=== PATIENT | male | born 1945 | race African-American/Black ===

== ENCOUNTER 2017-02-23 22:02 | Inpatient (IN) | payer MEDICARE, MEDICAID ==
[~2017-02-23] VITALS: Ht 180.3 cm; Wt 125.2 kg
[~2017-02-23 22:02] MED LIST: AMIO100T4 PO; AMLODIPINE; APIX5TAB PO; CHLO25TA2 PO; CLON0.1T PO; LORA10TA7 PO; LOSA25TA12 PO; METF500T4 PO; OLME20TA14 PO; OMEP20CA10 PO; ROSU10TA PO; SITA100T11 PO
[2017-02-23] MEDS ORDERED: SODIUM CHLORIDE 0.9% 1,000 ML IV ONE (22:59)
[2017-02-23 23:21] LABS: BASOPHILS % 0.6 % (0.0-2.0); EOSINOPHILS % 3.9 % (0.0-5.0); HEMOGLOBIN. 10.8 g/dL (14.0-18.0); LYMPHOCYTES % 39.5 % (20.0-50.0); MEAN CORPUSCULAR HEMOGLOBIN 26.5 pg (28.0-32.0); MEAN CORPUSCULAR VOLUME 80.7 fL (80.0-94.0); MEAN PLATELET VOLUME 9.3 fl (7.4-10.4); MONOCYTES % 8.8 % (2.0-8.0); NEUTROPHILS % 47.2 % (40.0-76.0); PLATELET 133 x1000/uL (130-400); RED BLOOD CELL COUNT 4.09 mill/uL (4.7-6.1); RED CELL DISTRIBUTION WIDTH 13.5 % (11.6-14.6)
[2017-02-23 23:29] LABS: PROTHROMBIN TIME 10.9 sec (9.4-11.6)
[2017-02-23 23:41] LABS: CARBON DIOXIDE 26 mEq/L (21-32); CHLORIDE 104 mEq/L (98-107); TROPONIN I < 0.02 ng/mL (0.00-0.04)
[2017-02-24] MEDS ORDERED: DEXTROSE 50% WATER 50ML SYRINGE IV PRN (04:15)
[2017-02-24] MEDS ORDERED: MAGNESIUM/ALUMINUM HYDROXIDE/SIMETHICONE 30ML UDC PO PRN (04:15)
[2017-02-24] MEDS ORDERED: ACETAMINOPHEN 325MG TABLET PO PRN (04:15)
[2017-02-24] MEDS ORDERED: DIPHENHYDRAMINE 50MG/ML VIAL IV PRN (04:15)
[2017-02-24] MEDS ORDERED: IPRATROPIUM/ALBUTEROL 0.5-3(2.5)MG/3ML NEB INH PRN (04:15)
[2017-02-24] MEDS ORDERED: ONDANSETRON HCL 4MG/2ML VIAL IV PRN (04:15)
[2017-02-24] MEDS ORDERED: GUAIFENESIN 200MG/10ML SUGAR FREE UDC PO PRN (04:15)
[2017-02-24] MEDS: BLOOD SUGAR DIAGNOSTIC STRIP TEST SCH ×4 (06:47→21:36)
[2017-02-24] MEDS: SODIUM CHLORIDE 0.9% INJ 3ML FLUSH IVF SCH ×3 (06:52→22:00)
[2017-02-24] MEDS: OMEPRAZOLE 20MG CAPSULE EXTENDED RELEASE PO SCH ×2 (06:52→21:35)
[2017-02-24] MEDS: INSULIN LISPRO 100 UNITS/ML SUBCUT SCH ×4 (07:15→21:39)
[2017-02-24] MEDS ORDERED: LOSARTAN POTASSIUM 25 MG TABLET PO SCH (09:00)
[2017-02-24] MEDS: METFORMIN HCL 500MG TABLET PO SCH ×2 (09:10→17:40)
[2017-02-24] MEDS: APIXABAN 5 MG TABLET PO SCH ×2 (09:10→17:40)
[2017-02-24] MEDS: AMLODIPINE 10MG TABLET PO SCH (09:11)
[2017-02-24] MEDS ORDERED: LOSARTAN POTASSIUM 25 MG TABLET PO NR (14:10)
[2017-02-24] MEDS: LOSARTAN POTASSIUM 50 MG TABLET PO SCH (21:36)
[2017-02-24] MEDS ORDERED: INSULIN DETEMIR UD 100 UNITS/ML SYR SUBCUT SCH (22:00)
[2017-02-25 06:48] LABS: BASOPHILS % 0.4 % (0.0-2.0); HEMATOCRIT. 34.5 % (42.0-52.0); HEMOGLOBIN. 11.5 g/dL (14.0-18.0); MEAN CORPUSCULAR VOLUME 80.8 fL (80.0-94.0); MEAN PLATELET VOLUME 9.6 fl (7.4-10.4); MONOCYTES % 9.5 % (2.0-8.0); NEUTROPHILS % 49.1 % (40.0-76.0); PLATELET 138 x1000/uL (130-400); RED BLOOD CELL COUNT 4.27 mill/uL (4.7-6.1); RED CELL DISTRIBUTION WIDTH 13.1 % (11.6-14.6)
[2017-02-25] MEDS: OMEPRAZOLE 20MG CAPSULE EXTENDED RELEASE PO SCH (06:51)
[2017-02-25] MEDS: SODIUM CHLORIDE 0.9% INJ 3ML FLUSH IVF SCH (06:52)
[2017-02-25] MEDS: BLOOD SUGAR DIAGNOSTIC STRIP TEST SCH ×2 (06:55→11:22)
[2017-02-25] MEDS: INSULIN LISPRO 100 UNITS/ML SUBCUT SCH ×2 (06:55→11:37)
[2017-02-25 07:10] LABS: CHLORIDE 108 mEq/L (98-107)
[2017-02-25 07:26] LABS: CARBON DIOXIDE 25 mEq/L (21-32)
[2017-02-25] MEDS: LOSARTAN POTASSIUM 50 MG TABLET PO SCH (08:44)
[2017-02-25] MEDS: METFORMIN HCL 500MG TABLET PO SCH (08:45)
[2017-02-25] MEDS: APIXABAN 5 MG TABLET PO SCH (08:45)
[2017-02-25] MEDS: AMLODIPINE 10MG TABLET PO SCH (08:45)
[2017-02-25] MEDS ORDERED: LOSARTAN POTASSIUM 50 MG TABLET PO SCH (09:00)
[2017-02-25] MEDS ORDERED: MAGNESIUM HYDROXIDE 400MG/5ML 30ML UDC PO PRN (11:45)
[2017-02-25] MEDS ORDERED: MAGNESIUM 2 G PREMIX 50 ML IV NR (12:00)
[2017-02-25 14:44] VITALS: BP 121/61
== END 2017-02-25 16:00 | disposition home or self-care (01) | DRG 309 ==
LOC: ER 22:21 → 5WST 02-24 02:11 → EDBEDREQ 02-24 02:13 → ENRESERV 02-24 02:52
PROVIDERS: ADMIT Internal Medicine; ATTEND Internal Medicine
DX: I44.0 Atrioventricular block, first degree (principal); E44.0 Moderate protein-calorie malnutrition; I11.9 Hypertensive heart disease without heart failure; I48.92 Unspecified atrial flutter; E83.42 Hypomagnesemia; E11.9 Type 2 diabetes mellitus without complications; I48.0 Paroxysmal atrial fibrillation; I13.10 Hypertensive heart and chronic kidney disease without heart failure, with stage 1 through stage 4 chronic kidney disease, or unspecified chronic kidney disease; N18.3 Chronic kidney disease, stage 3 (moderate); E66.09 Other obesity due to excess calories; E78.5 Hyperlipidemia, unspecified; R00.1 Bradycardia, unspecified; I49.1 Atrial premature depolarization; Z68.38 Body mass index [BMI] 38.0-38.9, adult; Z98.49 Cataract extraction status, unspecified eye; Z79.4 Long term (current) use of insulin; Z79.899 Other long term (current) drug therapy; Z82.49 Family history of ischemic heart disease and other diseases of the circulatory system; Z83.3 Family history of diabetes mellitus
CPT/HCPCS: 36415; 70450; 71010; 80048; 80053; 82962; 83735; 84443; 84484; 85025; 85610; 85730; 93005; 93306; 96360; 99291; J1815; J3475; J7030; J7040

== ENCOUNTER 2018-06-15 17:52 | Inpatient (IN) | payer MEDICARE, MEDICAID ==
[~2018-06-15] VITALS: Ht 180.3 cm; Wt 128.4 kg
[~2018-06-15 17:52] MED LIST changes: -AMIO100T4 PO; -CLON0.1T PO; +METF-414 PO; -METF500T4 PO
[2018-06-15 20:37] LABS: CHLORIDE 109 mEq/L (98-107)
[2018-06-15 20:38] LABS: BASOPHILS % 0.7 % (0.0-2.0); EOSINOPHILS % 3.7 % (0.0-5.0); HEMATOCRIT. 35.7 % (42.0-52.0); HEMOGLOBIN. 11.7 g/dL (14.0-18.0); LYMPHOCYTES % 30.8 % (20.0-50.0); MEAN CORPUSCULAR HEMOGLOBIN 27.5 pg (28.0-32.0); MEAN CORPUSCULAR VOLUME 83.7 fL (80.0-94.0); MEAN PLATELET VOLUME 9.9 fl (7.4-10.4); MONOCYTES % 7.6 % (2.0-8.0); NEUTROPHILS % 57.2 % (40.0-76.0); PLATELET 147 x1000/uL (130-400); RED BLOOD CELL COUNT 4.27 mill/uL (4.7-6.1)
[2018-06-15 23:15] VITALS: BP 144/45
[2018-06-16] VITALS (7 sets, daily range): BP systolic 115–135; BP diastolic 44–72
[2018-06-16] MEDS ORDERED: ONDANSETRON HCL 4MG/2ML INJ IV PRN (00:45)
[2018-06-16] MEDS ORDERED: ACETAMINOPHEN 325MG TABLET PO PRN (00:45)
[2018-06-16] MEDS ORDERED: MAGNESIUM/ALUMINUM HYDROXIDE/SIMETHICONE 30ML UDC PO PRN (00:45)
[2018-06-16] MEDS ORDERED: DEXTROSE 50% WATER 50ML SYRINGE IV PRN (00:45)
[2018-06-16] MEDS ORDERED: NEBI5TAB3 PO (01:39)
[2018-06-16] MEDS ORDERED: ESCI5SOL2 PO (01:39)
[2018-06-16] MEDS ORDERED: AMIO100T4 PO (01:39)
[2018-06-16] MEDS ORDERED: DOCU100T PO (01:39)
[2018-06-16] MEDS ORDERED: MAX GT (01:39)
[2018-06-16] MEDS ORDERED: AMLO10TA80 PO (01:39)
[2018-06-16] MEDS: BLOOD SUGAR DIAGNOSTIC STRIP TEST SCH ×4 (06:10→21:00)
[2018-06-16] MEDS: INSULIN LISPRO 100 UNITS/ML SUBCUT SCH ×4 (06:17→22:22)
[2018-06-16] MEDS: SODIUM CHLORIDE 0.9% INJ 3ML FLUSH IVF SCH ×3 (06:27→22:19)
[2018-06-16] MEDS: METFORMIN HCL 500MG TABLET PO SCH ×2 (07:38→17:03)
[2018-06-16] MEDS ORDERED: ENOXAPARIN 40MG/0.4ML SYR SUBCUT SCH (09:00)
[2018-06-16] MEDS ORDERED: ENOXAPARIN 30MG/0.3ML SYR SUBCUT SCH (09:00)
[2018-06-16] MEDS ORDERED: APIXABAN 5 MG TABLET PO SCH (09:00)
[2018-06-16] MEDS: LOSARTAN POTASSIUM 25 MG TABLET PO SCH (09:25)
[2018-06-16] MEDS ORDERED: INFLUENZA VIRUS VACCINE(AFLURIA) 0.5ML SYR IM ONE (12:00)
[2018-06-16] MEDS: ASPIRIN 81MG TABLET PO SCH (13:46)
[2018-06-16] MEDS: ATORVASTATIN CALCIUM 10MG TABLET PO SCH (22:19)
[2018-06-17] VITALS: BP 116/54
[2018-06-17 04:00] VITALS: BP 142/53
[2018-06-17] MEDS: SODIUM CHLORIDE 0.9% INJ 3ML FLUSH IVF SCH ×3 (06:14→21:17)
[2018-06-17] MEDS: BLOOD SUGAR DIAGNOSTIC STRIP TEST SCH ×4 (06:16→21:22)
[2018-06-17] MEDS: INSULIN LISPRO 100 UNITS/ML SUBCUT SCH ×4 (06:16→21:00)
[2018-06-17] MEDS: METFORMIN HCL 500MG TABLET PO SCH ×2 (07:35→16:50)
[2018-06-17 08:00] VITALS: BP 124/77
[2018-06-17] MEDS: ASPIRIN 81MG TABLET PO SCH (09:00)
[2018-06-17] MEDS: LOSARTAN POTASSIUM 25 MG TABLET PO SCH (09:00)
[2018-06-17 12:00] VITALS: BP 126/44
[2018-06-17 16:00] VITALS: BP 114/61
[2018-06-17 20:00] VITALS: BP 145/53
[2018-06-17] MEDS: ATORVASTATIN CALCIUM 10MG TABLET PO SCH (21:17)
[2018-06-18] VITALS: BP 120/55
[2018-06-18 04:00] VITALS: BP 133/55
[2018-06-18] MEDS: SODIUM CHLORIDE 0.9% INJ 3ML FLUSH IVF SCH ×3 (05:54→22:00)
[2018-06-18] MEDS: BLOOD SUGAR DIAGNOSTIC STRIP TEST SCH ×4 (06:00→21:53)
[2018-06-18] MEDS: INSULIN LISPRO 100 UNITS/ML SUBCUT SCH ×4 (06:50→22:00)
[2018-06-18 08:00] VITALS: BP 122/60
[2018-06-18] MEDS: METFORMIN HCL 500MG TABLET PO SCH ×2 (08:38→17:20)
[2018-06-18] MEDS: LOSARTAN POTASSIUM 25 MG TABLET PO SCH (08:38)
[2018-06-18] MEDS: ASPIRIN 81MG TABLET PO SCH (08:38)
[2018-06-18 12:00] VITALS: BP 117/42
[2018-06-18 14:25] LABS: HEMATOCRIT 35.8 % (42.0-52.0); HEMOGLOBIN 11.6 g/dL (14.0-18.0); MEAN CORPUSCULAR HEMOGLOBIN 27.5 pg (28.0-32.0); PLATELET 147 x1000/uL (130-400); RED BLOOD CELL COUNT 4.21 mill/uL (4.7-6.1); RED CELL DISTRIBUTION WIDTH 13.9 % (11.6-14.6)
[2018-06-18 14:49] LABS: CHLORIDE 106 mEq/L (98-107)
[2018-06-18 16:00] VITALS: BP 126/64
[2018-06-18 20:00] VITALS: BP 126/56
[2018-06-18] MEDS: ATORVASTATIN CALCIUM 10MG TABLET PO SCH (21:50)
[2018-06-19] VITALS: BP 164/75
[2018-06-19 04:00] VITALS: BP 115/40
[2018-06-19] MEDS: BLOOD SUGAR DIAGNOSTIC STRIP TEST SCH ×2 (05:41→11:45)
[2018-06-19] MEDS: SODIUM CHLORIDE 0.9% INJ 3ML FLUSH IVF SCH (05:41)
[2018-06-19] MEDS: INSULIN LISPRO 100 UNITS/ML SUBCUT SCH ×2 (06:17→12:15)
[2018-06-19 08:00] VITALS: BP 137/69
[2018-06-19] MEDS: METFORMIN HCL 500MG TABLET PO SCH (08:31)
[2018-06-19] MEDS: LOSARTAN POTASSIUM 25 MG TABLET PO SCH (08:32)
[2018-06-19] MEDS: ASPIRIN 81MG TABLET PO SCH (08:32)
[2018-06-19 12:00] VITALS: BP 119/57
[2018-06-19 12:10] VITALS: BP 119/57
== END 2018-06-19 13:30 | disposition home or self-care (01) | DRG 310 ==
LOC: ER 17:52 → 5WST 21:57 → EDBEDREQ 22:04 → EDBEDREQTM 22:04 → ENRESERV 22:13 → 5WST 23:21
PROVIDERS: ADMIT Internal Medicine; ATTEND Internal Medicine
DX: I49.8 Other specified cardiac arrhythmias (principal); R55 Syncope and collapse; E11.9 Type 2 diabetes mellitus without complications; I10 Essential (primary) hypertension; E66.9 Obesity, unspecified; Z68.39 Body mass index [BMI] 39.0-39.9, adult; Z79.01 Long term (current) use of anticoagulants; Z82.49 Family history of ischemic heart disease and other diseases of the circulatory system; Z83.3 Family history of diabetes mellitus; Z79.899 Other long term (current) drug therapy
CPT/HCPCS: 36415; 71045; 80048; 82962; 83735; 83880; 84443; 84484; 85027; 90471; 90686; 93005; 93306; 99285; J1815

== ENCOUNTER 2019-11-10 07:45 | Inpatient (IN) | payer MEDICARE, MEDICAID ==
[~2019-11-10] VITALS: Ht 180.3 cm; Wt 135.8 kg
[~2019-11-10 07:45] MED LIST changes: +AMIO100T4 PO; +AMLO10TA80 PO; -AMLODIPINE; +CRES10 PO; +DOCU100T PO; +ESCI5SOL2 PO; -LORA10TA7 PO; -LOSA25TA12 PO; +LOSA25TA26 PO; +MAX GT; +OLME20TA13 PO; -OLME20TA14 PO; -OMEP20CA10 PO; +OMEP20CA14 PO; -ROSU10TA PO
[2019-11-10] MEDS ORDERED: KETOROLAC 30MG/ML VIAL IV STA (08:05)
[2019-11-10] MEDS ORDERED: MAGNESIUM/ALUMINUM HYDROXIDE/SIMETHICONE 30ML UDC PO STA (08:05)
[2019-11-10] MEDS ORDERED: SODIUM CHLORIDE 0.9% 1,000 ML IV ONE (08:05)
[2019-11-10 08:55] LABS: BASOPHILS % 1.1 % (0.0-2.0); EOSINOPHILS % 2.9 % (0.0-5.0); HEMATOCRIT. 37.3 % (42.0-52.0); HEMOGLOBIN. 12.2 g/dL (14.0-18.0); LYMPHOCYTES % 26.2 % (20.0-50.0); MEAN CORPUSCULAR HEMOGLOBIN 26.6 pg (28.0-32.0); MEAN CORPUSCULAR VOLUME 81.2 fL (80.0-94.0); MEAN PLATELET VOLUME 9.8 fl (7.4-10.4); MONOCYTES % 6.9 % (2.0-8.0); NEUTROPHILS % 62.9 % (40.0-76.0); PLATELET 143 x1000/uL (130-400); RED BLOOD CELL COUNT 4.59 mill/uL (4.7-6.1); RED CELL DISTRIBUTION WIDTH 14.4 % (11.6-14.6)
[2019-11-10 08:57] LABS: PROTHROMBIN TIME 10.4 sec (9.6-11.0)
[2019-11-10 08:58] LABS: CHLORIDE 108 mEq/L (98-107)
[2019-11-10 09:50] LABS: CLARITY URINE CLEAR (CLEAR); COLOR URINE YELLOW (YELLOW); KETONES URINE NEGATIVE (NEGATIVE); LEUKOCYTE ESTERASE URINE NEGATIVE (NEGATIVE); NITRITE URINE NEGATIVE (NEGATIVE); OCCULT BLOOD URINE NEGATIVE (NEGATIVE); PROTEIN URINE 2+ (NEGATIVE); UROBILINOGEN URINE 0.2 E.U./dL (0.2-1.0)
[2019-11-10] MEDS ORDERED: LORAZEPAM 1MG TABLET PO ONE (11:45)
[2019-11-10] MEDS ORDERED: MORPHINE SULFATE 2 MG/ML CPJ (NOT FOR IM USE) IV PRN (14:15)
[2019-11-10] MEDS ORDERED: ONDANSETRON HCL 4MG/2ML INJ IV PRN (14:15)
[2019-11-10] MEDS ORDERED: DEXTROSE 50% WATER 50ML SYRINGE IV PRN (14:15)
[2019-11-10] MEDS ORDERED: ACETAMINOPHEN 325MG TABLET PO PRN (14:15)
[2019-11-10] MEDS: SODIUM CHLORIDE 0.9% 1,000 ML IV SCH (14:21)
[2019-11-10] MEDS: BLOOD SUGAR DIAGNOSTIC STRIP TEST SCH ×2 (17:43→23:15)
[2019-11-10] MEDS: INSULIN LISPRO 100 UNITS/ML SUBCUT SCH ×2 (17:56→23:15)
[2019-11-10] MEDS: FAMOTIDINE 20MG/2ML VIAL IV SCH (22:30)
[2019-11-11] VITALS (8 sets, daily range): BP systolic 125–155; BP diastolic 44–99
[2019-11-11] MEDS: SODIUM CHLORIDE 0.9% 1,000 ML IV SCH ×4 (03:17→23:46)
[2019-11-11] MEDS: INSULIN LISPRO 100 UNITS/ML SUBCUT SCH ×4 (08:20→21:00)
[2019-11-11] MEDS ORDERED: HYDRALAZINE 20MG/ML VIAL IV PRN (09:00)
[2019-11-11 10:23] LABS: BASOPHILS % 0.4 % (0.0-2.0); EOSINOPHILS % 3.1 % (0.0-5.0); HEMATOCRIT. 37.8 % (42.0-52.0); HEMOGLOBIN. 12.4 g/dL (14.0-18.0); LYMPHOCYTES % 26.4 % (20.0-50.0); MEAN CORPUSCULAR HEMOGLOBIN 26.6 pg (28.0-32.0); MEAN CORPUSCULAR VOLUME 81.4 fL (80.0-94.0); MEAN PLATELET VOLUME 9.6 fl (7.4-10.4); NEUTROPHILS % 62.1 % (40.0-76.0); PLATELET 143 x1000/uL (130-400); RED BLOOD CELL COUNT 4.65 mill/uL (4.7-6.1); RED CELL DISTRIBUTION WIDTH 14.3 % (11.6-14.6)
[2019-11-11] MEDS: FAMOTIDINE 20MG/2ML VIAL IV SCH ×2 (10:27→21:13)
[2019-11-11 10:30] LABS: CHLORIDE 111 mEq/L (98-107)
[2019-11-11] MEDS: BLOOD SUGAR DIAGNOSTIC STRIP TEST SCH ×3 (11:09→21:09)
[2019-11-11] MEDS ORDERED: DOCUSATE SODIUM 100MG CAPSULE PO PRN (12:30)
[2019-11-11] MEDS ORDERED: BISACODYL 10MG SUPP PR PRN (12:30)
[2019-11-11] MEDS ORDERED: SENNOSIDES/DOCUSATE SOD 8.6/50MG TABLET PO PRN (12:30)
[2019-11-11] MEDS ORDERED: MAGNESIUM HYDROXIDE 400MG/5ML 30ML UDC PO PRN (12:30)
[2019-11-11] MEDS ORDERED: MAGNESIUM CITRATE 300ML SOLUTION PO NR (14:30)
[2019-11-11] MEDS ORDERED: METOCLOPRAMIDE HCL 10MG TABLET PO PRN (15:15)
[2019-11-12] VITALS (13 sets, daily range): BP systolic 123–159; BP diastolic 54–74
[2019-11-12] MEDS: BLOOD SUGAR DIAGNOSTIC STRIP TEST SCH ×2 (06:54→12:29)
[2019-11-12] MEDS: INSULIN LISPRO 100 UNITS/ML SUBCUT SCH ×2 (07:20→12:20)
[2019-11-12 08:01] LABS: BASOPHILS % 0.9 % (0.0-2.0); HEMATOCRIT. 39.3 % (42.0-52.0); HEMOGLOBIN. 12.8 g/dL (14.0-18.0); LYMPHOCYTES % 26.8 % (20.0-50.0); MEAN CORPUSCULAR HEMOGLOBIN 26.5 pg (28.0-32.0); MEAN CORPUSCULAR VOLUME 81.6 fL (80.0-94.0); MEAN PLATELET VOLUME 9.4 fl (7.4-10.4); MONOCYTES % 7.7 % (2.0-8.0); NEUTROPHILS % 60.6 % (40.0-76.0); PLATELET 141 x1000/uL (130-400); RED BLOOD CELL COUNT 4.82 mill/uL (4.7-6.1); RED CELL DISTRIBUTION WIDTH 14.3 % (11.6-14.6)
[2019-11-12] MEDS: FAMOTIDINE 20MG/2ML VIAL IV SCH (08:24)
[2019-11-12 08:36] LABS: CHLORIDE 110 mEq/L (98-107)
[2019-11-12] MEDS: SODIUM CHLORIDE 0.9% 1,000 ML IV SCH (12:40)
[2019-11-12] MEDS ORDERED: SENN-3 PO (12:45)
== END 2019-11-12 16:00 | disposition home or self-care (01) | DRG 683 ==
LOC: ER 07:45 → 3WST 11:41 → EDBEDREQ 11:46 → ENRESERV 11-11 07:41
PROVIDERS: ADMIT Internal Medicine; ATTEND Internal Medicine
DX: N17.9 Acute kidney failure, unspecified (principal); D61.818 Other pancytopenia; I12.9 Hypertensive chronic kidney disease with stage 1 through stage 4 chronic kidney disease, or unspecified chronic kidney disease; I48.91 Unspecified atrial fibrillation; R00.1 Bradycardia, unspecified; E11.22 Type 2 diabetes mellitus with diabetic chronic kidney disease; E11.65 Type 2 diabetes mellitus with hyperglycemia; R10.9 Unspecified abdominal pain; N18.9 Chronic kidney disease, unspecified; E78.5 Hyperlipidemia, unspecified; K59.09 Other constipation; I44.0 Atrioventricular block, first degree; Z82.49 Family history of ischemic heart disease and other diseases of the circulatory system; Z79.899 Other long term (current) drug therapy
CPT/HCPCS: 36415; 74176; 80053; 81003; 82962; 83036; 83735; 85025; 93005; 93306; 99285; J1815; J1885; J2270; J2405; J3490; J7030

== ENCOUNTER 2019-12-25 05:48 | Emergency (ER) | payer MEDICARE, MEDICAID ==
[~2019-12-25] VITALS: Ht 188 cm; Wt 127.0 kg
[~2019-12-25 05:48] MED LIST changes: -AMIO100T4 PO; -APIX5TAB PO; -CHLO25TA2 PO; -LOSA25TA26 PO; -OLME20TA13 PO; +SENN-3 PO
[2019-12-25 07:58] LABS: BASOPHILS % 0.3 % (0.0-2.0); EOSINOPHILS % 3.3 % (0.0-5.0); HEMATOCRIT. 36.2 % (42.0-52.0); MEAN CORPUSCULAR HEMOGLOBIN 26.9 pg (28.0-32.0); MEAN PLATELET VOLUME 9.9 fl (7.4-10.4); MONOCYTES % 8.3 % (2.0-8.0); NEUTROPHILS % 65.1 % (40.0-76.0); PLATELET 131 x1000/uL (130-400); RED BLOOD CELL COUNT 4.46 mill/uL (4.7-6.1); RED CELL DISTRIBUTION WIDTH 14.8 % (11.6-14.6)
[2019-12-25 08:24] LABS: CHLORIDE 108 mEq/L (98-107)
[2019-12-25 08:49] VITALS: BP 158/64
== END 2019-12-25 08:58 | disposition home or self-care (01) ==
LOC: ER 05:48
DX: I10 Essential (primary) hypertension (principal)
CPT/HCPCS: 36415; 71045; 80053; 84484; 85025; 93005; 99285

== ENCOUNTER 2021-03-30 14:11 | Inpatient (IN) | payer OTHER, MEDICAID ==
[~2021-03-30] VITALS: Ht 180.3 cm; Wt 133.4 kg
[2021-03-30 14:52] LABS: BASOPHILS % 0.5 % (0.0-2.0); EOSINOPHILS % 3.1 % (0.0-5.0); HEMATOCRIT. 36.8 % (42.0-52.0); HEMOGLOBIN. 11.9 g/dL (14.0-18.0); LYMPHOCYTES % 21.4 % (20.0-50.0); MEAN CORPUSCULAR HEMOGLOBIN 26.5 pg (28.0-32.0); MEAN PLATELET VOLUME 9.6 fl (7.4-10.4); MONOCYTES % 6.5 % (2.0-8.0); NEUTROPHILS % 68.5 % (40.0-76.0); PLATELET 170 x1000/uL (130-400); RED BLOOD CELL COUNT 4.49 mill/uL (4.7-6.1); RED CELL DISTRIBUTION WIDTH 15.6 % (11.6-14.6)
[2021-03-30 14:57] LABS: CHLORIDE 110 mEq/L (98-107)
[2021-03-30 15:02] LABS: PARTIAL THROMBOPLASTIN TIME 28.4 sec (23.4-31.0); PROTHROMBIN TIME 10.4 sec (9.6-11.0)
[2021-03-30] MEDS ORDERED: PANTOPRAZOLE SODIUM 40 MG/VIAL IV STA (15:37)
[2021-03-30] MEDS ORDERED: PANTOPRAZOLE 80 MG in SODIUM CHLORIDE 0.9% 100 ML IV STA (15:37)
[2021-03-30] MEDS ORDERED: CEFTRIAXONE 1 G PREMIX 50 ML IV ONE (15:45)
[2021-03-30] MEDS ORDERED: PANTOPRAZOLE SODIUM 40 MG/VIAL IV ONE (16:08)
[2021-03-30] MEDS ORDERED: DEXTROSE 50% WATER 50ML SYRINGE IV PRN (16:15)
[2021-03-30] MEDS ORDERED: ACETAMINOPHEN 650MG SUPP PR PRN (16:15)
[2021-03-30 16:16] LABS: CLARITY URINE CLEAR (CLEAR); COLOR URINE YELLOW (YELLOW); KETONES URINE NEGATIVE (NEGATIVE); LEUKOCYTE ESTERASE URINE NEGATIVE (NEGATIVE); NITRITE URINE NEGATIVE (NEGATIVE); OCCULT BLOOD URINE NEGATIVE (NEGATIVE); PROTEIN URINE 2+ (NEGATIVE); SPECIFIC GRAVITY URINE 1.014 (1.005-1.030)
[2021-03-30] MEDS: AMIODARONE HCL 200 MG TABLET PO SCH (16:51)
[2021-03-30] MEDS: BLOOD SUGAR DIAGNOSTIC STRIP TEST SCH ×2 (17:00→21:00)
[2021-03-30] MEDS: PANTOPRAZOLE SODIUM 40 MG/VIAL IV SCH (18:05)
[2021-03-30] MEDS: INSULIN LISPRO 100 UNITS/ML SUBCUT SCH ×2 (18:20→21:00)
[2021-03-30 19:51] LABS: HEMATOCRIT 36.1 % (42.0-52.0); HEMOGLOBIN 11.7 g/dL (14.0-18.0); MEAN CORPUSCULAR HEMOGLOBIN 26.5 pg (28.0-32.0); MEAN CORPUSCULAR VOLUME 82.1 fL (80.0-94.0); PLATELET 150 x1000/uL (130-400); RED CELL DISTRIBUTION WIDTH 15.4 % (11.6-14.6)
[2021-03-30] MEDS: ATORVASTATIN CALCIUM 20MG TABLET PO SCH (21:10)
[2021-03-30] MEDS: CLONIDINE 0.1MG TABLET PO PRN (21:11)
[2021-03-30 21:45] VITALS: BP 163/69
[2021-03-30 22:00] VITALS: BP 163/69
[2021-03-31] VITALS: BP 161/68
[2021-03-31 04:00] VITALS: BP 127/55
[2021-03-31 05:20] LABS: PROTHROMBIN TIME 10.9 sec (9.6-11.0)
[2021-03-31 05:35] LABS: BASOPHILS % 0.5 % (0.0-2.0); HEMATOCRIT. 36.7 % (42.0-52.0); HEMOGLOBIN. 11.8 g/dL (14.0-18.0); LYMPHOCYTES % 30.5 % (20.0-50.0); MEAN CORPUSCULAR HEMOGLOBIN 26.3 pg (28.0-32.0); MEAN CORPUSCULAR VOLUME 81.8 fL (80.0-94.0); MEAN PLATELET VOLUME 9.9 fl (7.4-10.4); MONOCYTES % 9.2 % (2.0-8.0); NEUTROPHILS % 55.8 % (40.0-76.0); PLATELET 140 x1000/uL (130-400); RED BLOOD CELL COUNT 4.48 mill/uL (4.7-6.1); RED CELL DISTRIBUTION WIDTH 15.1 % (11.6-14.6)
[2021-03-31 05:37] LABS: FOLIC ACID (FOLATE) SERUM > 20.00 ng/mL (>5.38)
[2021-03-31 05:40] LABS: FERRITIN 101 ng/mL (22-322)
[2021-03-31 05:48] LABS: VITAMIN B12 SERUM 658 pg/mL (211-911)
[2021-03-31] MEDS: BLOOD SUGAR DIAGNOSTIC STRIP TEST SCH ×4 (06:40→21:01)
[2021-03-31] MEDS: INSULIN LISPRO 100 UNITS/ML SUBCUT SCH ×4 (07:10→21:01)
[2021-03-31 08:00] VITALS: BP 149/65
[2021-03-31] MEDS: PANTOPRAZOLE SODIUM 40 MG/VIAL IV SCH ×2 (09:07→18:04)
[2021-03-31] MEDS: AMIODARONE HCL 200 MG TABLET PO SCH (09:57)
[2021-03-31] MEDS: AMLODIPINE 10MG TABLET PO SCH (11:25)
[2021-03-31 12:00] VITALS: BP 176/67
[2021-03-31] MEDS: CLONIDINE 0.1MG TABLET PO PRN (12:20)
[2021-03-31] MEDS ORDERED: HYDROCODONE/ACETAMINOPHEN 5/325MG TABLET PO PRN (15:00)
[2021-03-31] MEDS ORDERED: IPRATROPIUM/ALBUTEROL 0.5-3(2.5)MG/3ML NEB HHN PRN (15:00)
[2021-03-31] MEDS ORDERED: LACTULOSE 20G/30ML UDC PO NR (15:00)
[2021-03-31] MEDS ORDERED: HYDRALAZINE 20MG/ML VIAL IV PRN (15:00)
[2021-03-31] MEDS ORDERED: LORAZEPAM 2MG/ML CPJ IV PRN (15:00)
[2021-03-31] MEDS ORDERED: BISACODYL 10MG SUPP PR PRN (15:00)
[2021-03-31] MEDS ORDERED: NALOXONE HCL 0.4MG/ML VIAL IV PRN (15:00)
[2021-03-31 16:00] VITALS: BP 118/56
[2021-03-31 20:00] VITALS: BP 142/58
[2021-03-31] MEDS: ATORVASTATIN CALCIUM 20MG TABLET PO SCH (21:01)
[2021-04-01] VITALS (7 sets, daily range): BP systolic 110–166; BP diastolic 9–70
[2021-04-01 06:23] LABS: BASOPHILS % 0.3 % (0.0-2.0); EOSINOPHILS % 3.7 % (0.0-5.0); HEMATOCRIT. 37.7 % (42.0-52.0); HEMOGLOBIN. 12.2 g/dL (14.0-18.0); LYMPHOCYTES % 26.7 % (20.0-50.0); MEAN CORPUSCULAR HEMOGLOBIN 26.5 pg (28.0-32.0); MEAN CORPUSCULAR VOLUME 81.8 fL (80.0-94.0); MEAN PLATELET VOLUME 9.8 fl (7.4-10.4); MONOCYTES % 8.5 % (2.0-8.0); NEUTROPHILS % 60.8 % (40.0-76.0); PLATELET 133 x1000/uL (130-400); RED BLOOD CELL COUNT 4.61 mill/uL (4.7-6.1); RED CELL DISTRIBUTION WIDTH 15.2 % (11.6-14.6)
[2021-04-01 06:49] LABS: PARTIAL THROMBOPLASTIN TIME 28.8 sec (23.4-31.0)
[2021-04-01] MEDS: INSULIN LISPRO 100 UNITS/ML SUBCUT SCH ×4 (07:10→20:13)
[2021-04-01] MEDS: AMLODIPINE 10MG TABLET PO SCH (09:00)
[2021-04-01] MEDS: AMIODARONE HCL 200 MG TABLET PO SCH (09:00)
[2021-04-01] MEDS: PANTOPRAZOLE SODIUM 40 MG/VIAL IV SCH ×2 (10:01→17:57)
[2021-04-01] MEDS: BLOOD SUGAR DIAGNOSTIC STRIP TEST SCH ×3 (12:01→20:13)
[2021-04-01] MEDS ORDERED: MIDAZOLAM HCL 5 MG/5 ML VIAL ONE (12:38)
[2021-04-01] MEDS ORDERED: FENTANYL CITRATE/PF 50MCG/ML 2ML VIAL ONE (12:39)
[2021-04-01] MEDS ORDERED: FENTANYL CITRATE/PF 50MCG/ML 2ML VIAL IV PRN (12:48)
[2021-04-01] MEDS ORDERED: MIDAZOLAM HCL 5 MG/5 ML VIAL IV PRN (12:49)
[2021-04-01] MEDS ORDERED: LACTULOSE 20G/30ML UDC PO ONE (13:45)
[2021-04-01] MEDS ORDERED: SUCR1TAB30 MT (13:51)
[2021-04-01] MEDS ORDERED: APIX5TAB MT (13:51)
[2021-04-01] MEDS ORDERED: OMEP40CA20 MT (13:51)
[2021-04-01] MEDS ORDERED: APIXABAN 5 MG TABLET PO SCH (14:30)
[2021-04-01] MEDS: SUCRALFATE 1G TABLET PO SCH ×2 (17:58→20:06)
[2021-04-01] MEDS: ATORVASTATIN CALCIUM 20MG TABLET PO SCH (20:05)
[2021-04-01 21:14] LABS: BASOPHILS % 0.3 % (0.0-2.0); EOSINOPHILS % 3.3 % (0.0-5.0); HEMATOCRIT. 35.9 % (42.0-52.0); HEMOGLOBIN. 11.8 g/dL (14.0-18.0); LYMPHOCYTES % 29.5 % (20.0-50.0); MEAN CORPUSCULAR VOLUME 82.3 fL (80.0-94.0); MONOCYTES % 7.9 % (2.0-8.0); PLATELET 150 x1000/uL (130-400); RED BLOOD CELL COUNT 4.36 mill/uL (4.7-6.1); RED CELL DISTRIBUTION WIDTH 14.8 % (11.6-14.6)
[2021-04-01 21:59] LABS: CARCINO EMBRYONIC ANTIGEN 1.3 ng/ml
[2021-04-05 14:29] LABS: HEPATITIS B SURFACE ANTIGEN NEGATIVE
== END 2021-04-01 20:21 | disposition home or self-care (01) | DRG 378 ==
LOC: ER 14:28 → 7EST 17:55 → ENRESERV 20:27
PROVIDERS: ADMIT Internal Medicine; ATTEND Internal Medicine
PROC: 0DB98ZX Excision of Duodenum, Via Natural or Artificial Opening Endoscopic, Diagnostic (ICD-10-PCS; principal; 2021-04-01)
PROC: 0DB78ZX Excision of Stomach, Pylorus, Via Natural or Artificial Opening Endoscopic, Diagnostic (ICD-10-PCS; 2021-04-01)
DX: K29.71 Gastritis, unspecified, with bleeding (principal); N17.9 Acute kidney failure, unspecified; J98.11 Atelectasis; E66.2 Morbid (severe) obesity with alveolar hypoventilation; Z68.41 Body mass index [BMI] 40.0-44.9, adult; K26.4 Chronic or unspecified duodenal ulcer with hemorrhage; I12.9 Hypertensive chronic kidney disease with stage 1 through stage 4 chronic kidney disease, or unspecified chronic kidney disease; D64.9 Anemia, unspecified; E11.22 Type 2 diabetes mellitus with diabetic chronic kidney disease; E78.5 Hyperlipidemia, unspecified; K74.60 Unspecified cirrhosis of liver; R00.1 Bradycardia, unspecified; I25.10 Atherosclerotic heart disease of native coronary artery without angina pectoris; Z20.822 Contact with and (suspected) exposure to COVID-19; I48.0 Paroxysmal atrial fibrillation; N18.9 Chronic kidney disease, unspecified; Z79.01 Long term (current) use of anticoagulants; Z80.3 Family history of malignant neoplasm of breast; Z82.49 Family history of ischemic heart disease and other diseases of the circulatory system; Z86.16 Personal history of COVID-19; Z87.11 Personal history of peptic ulcer disease; Z87.01 Personal history of pneumonia (recurrent); Z79.899 Other long term (current) drug therapy; Z79.84 Long term (current) use of oral hypoglycemic drugs
CPT/HCPCS: 36415; 71045; 74176; 76700; 76770; 80048; 80053; 80061; 81003; 82105; 82270; 82378; 82607; 82728; 82746; 82962; 83036; 83540; 83550; 83735; 83880; 84484; 85025; 85027; 85044; 86803; 86850; 86900; 87340; 87426; 88305; 88312; 88313; 93005; 93306; 97162; 99285; C9113; J0696; J1815; J2250; J3010; J7050

== ENCOUNTER 2022-12-16 08:13 | Emergency (ER) | payer MEDICARE, MEDICAID ==
[~2022-12-16] VITALS: Ht 170.2 cm; Wt 130.0 kg
[~2022-12-16 08:13] MED LIST changes: +APIX5TAB MT; -OMEP20CA14 PO; +OMEP40CA20 MT; +SUCR1TAB30 MT
[2022-12-16] MEDS ORDERED: KETOROLAC 30MG/ML INJ (FOR IM ONLY) IM ONE (09:15)
[2022-12-16] MEDS ORDERED: KETOROLAC 30MG/ML VIAL IM NR (09:36)
[2022-12-16 09:54] VITALS: BP 139/60
[2022-12-16] MEDS ORDERED: CYCL10TA21 MT (10:41)
[2022-12-16] MEDS ORDERED: TOPUD MT (10:41)
== END 2022-12-16 11:31 | disposition home or self-care (01) ==
LOC: ER 08:32
DX: M54.50 Low back pain, unspecified (principal); E11.9 Type 2 diabetes mellitus without complications; I10 Essential (primary) hypertension; Z79.899 Other long term (current) drug therapy
CPT/HCPCS: 72131; 96372; 99285; J1885

== ENCOUNTER 2023-06-26 11:26 | Emergency (ER) | payer MEDICARE, MEDICAID ==
[~2023-06-26] VITALS: Ht 180.3 cm; Wt 130.0 kg
[~2023-06-26 11:26] MED LIST changes: +CYCL10TA21 MT; +TOPUD MT
[2023-06-26 11:37] VITALS: TEMP 98.6; O2SAT 97
[2023-06-26 12:20] LABS: BASOPHILS % 0.3 % (0.0-2.0); EOSINOPHILS % 2.4 % (0.0-5.0); HEMATOCRIT. 37.8 % (42.0-52.0); MEAN CORPUSCULAR HGB CONC 31.9 g/dL (31.0-37.0); MEAN CORPUSCULAR VOLUME 84.9 fL (80.0-94.0); MEAN PLATELET VOLUME 9.8 fl (7.4-10.4); MONOCYTES % 6.3 % (2.0-8.0); PLATELET 154 x1000/uL (130-400); RED BLOOD CELL COUNT 4.45 mill/uL (4.7-6.1); RED CELL DISTRIBUTION WIDTH 13.8 % (11.6-14.6); WHITE BLOOD COUNT 4.3 x1000/uL (4.5-11.0)
[2023-06-26 12:26] LABS: PROTHROMBIN TIME 10.3 sec (9.6-11.0)
[2023-06-26 13:00] LABS: ALANINE AMINOTRANSFERASE 11 IU/L (10-49); ALBUMIN 3.7 g/dL (3.2-4.8); ASPARTATE AMINOTRANSFERASE 16 IU/L (<34); BILIRUBIN TOTAL 0.3 mg/dL (0.1-1.0); CALCIUM 9.2 mg/dL (8.7-10.4); CARBON DIOXIDE 29 mEq/L (21-32); CHLORIDE 108 mEq/L (98-107); CREATININE 1.8 mg/dL (0.6-1.3); GLUCOSE 155 mg/dL (70-105); PROTEIN TOTAL 7.5 g/dL (6.0-8.3); SODIUM 138 mEq/L (136-145); UREA NITROGEN BLOOD 25 mg/dL (9-23)
[2023-06-26 16:50] LABS: CLARITY URINE CLEAR (CLEAR); COLOR URINE YELLOW (YELLOW); GLUCOSE URINE NEGATIVE (NEGATIVE); KETONES URINE NEGATIVE (NEGATIVE); LEUKOCYTE ESTERASE URINE NEGATIVE (NEGATIVE); NITRITE URINE NEGATIVE (NEGATIVE); OCCULT BLOOD URINE NEGATIVE (NEGATIVE); PROTEIN URINE 2+ (NEGATIVE); SPECIFIC GRAVITY URINE 1.019 (1.005-1.030); UROBILINOGEN URINE 0.2 E.U./dL (0.2-1.0)
[2023-06-26 17:13] LABS: BACTERIA URINE 1+; RBC URINE NONE SEEN /hpf (0-2); SQUAMOUS EPITHELIAL CELL URINE RARE /lpf (RARE/1+); WBC URINE 0-2 /hpf (0-2)
[2023-06-26 19:08] VITALS: BP 129/62; PULSE 64; RESP 18
== END 2023-06-26 19:11 | disposition home or self-care (01) ==
LOC: ER 11:26
DX: K92.1 Melena (principal); E11.9 Type 2 diabetes mellitus without complications; I10 Essential (primary) hypertension; Z79.899 Other long term (current) drug therapy
CPT/HCPCS: 36415; 71045; 80053; 81003; 82270; 85025; 86850; 86900; 93005; 99285

== ENCOUNTER 2024-07-11 22:55 | Inpatient (IN) | payer MEDICARE, MEDICAID ==
[~2024-07-11] VITALS: Ht 180.3 cm; Wt 111.1 kg
[~2024-07-11 22:55] MED LIST changes: +AMI2; +AMOX1TAB16 MT; +HYDR-4001 MT
[2024-07-11 23:00] VITALS: BP 154/57; PULSE 67; RESP 20; TEMP 37.2252; TEMP 37.252; O2SAT 94
[2024-07-12] MEDS ORDERED: ONDANSETRON HCL 4MG/2ML INJ IV PRN
[2024-07-12] MEDS ORDERED: MORPHINE SULFATE 2 MG/ML INJ (NOT FOR IM USE) IV PRN
[2024-07-12] MEDS ORDERED: DEXTROSE 50% WATER 50ML SYRINGE IV PRN
[2024-07-12] MEDS ORDERED: NALOXONE HCL 0.4MG/ML 1ML VIAL SUBCUT PRN
[2024-07-12] MEDS ORDERED: OXYCODONE HCL 10MG TABLET SR 12HR PO PRN
[2024-07-12] MEDS: BLOOD SUGAR DIAGNOSTIC STRIP TEST SCH (06:30)
[2024-07-12] MEDS: SUCRALFATE 1G TABLET PO SCH (06:30)
[2024-07-12] MEDS: PANTOPRAZOLE 40MG DR TABLET PO SCH (07:00)
[2024-07-12] MEDS: LEVOTHYROXINE SODIUM 50MCG TABLET PO SCH (07:00)
[2024-07-12 08:00] VITALS: BP 140/64; PULSE 73; RESP 20; TEMP 36.22512; O2SAT 100
[2024-07-12] MEDS: INSULIN LISPRO 100 UNITS/ML SUBCUT SCH (09:00)
[2024-07-12] MEDS: AMIODARONE 200MG TABLET PO SCH (09:11)
[2024-07-12] MEDS: AMLODIPINE 10MG TABLET PO SCH (09:17)
[2024-07-12] MEDS: ENOXAPARIN 120MG/0.8ML SYR SUBCUT SCH (09:21)
[2024-07-12 12:59] LABS: BASOPHILS % 0.1 % (0.0-2.0); EOSINOPHILS % 0.5 % (0.0-5.0); HEMATOCRIT. 29.8 % (42.0-52.0); HEMOGLOBIN. 9.8 g/dL (14.0-18.0); MEAN CORPUSCULAR HEMOGLOBIN 26.8 pg (28.0-32.0); MEAN CORPUSCULAR HGB CONC 32.8 g/dL (31.0-37.0); MEAN CORPUSCULAR VOLUME 81.6 fL (80.0-94.0); MEAN PLATELET VOLUME 8.9 fl (7.4-10.4); MONOCYTES % 12.3 % (2.0-8.0); NEUTROPHILS % 74.1 % (40.0-76.0); PLATELET 206 x1000/uL (130-400); RED BLOOD CELL COUNT 3.65 mill/uL (4.7-6.1); RED CELL DISTRIBUTION WIDTH 13.2 % (11.6-14.6); WHITE BLOOD COUNT 8.8 x1000/uL (4.5-11.0)
[2024-07-12 13:09] LABS: CARBON DIOXIDE 25 mEq/L (21-32); CHLORIDE 104 mEq/L (98-107); POTASSIUM 4.1 mEq/L (3.5-5.1); SODIUM 138 mEq/L (136-145)
[2024-07-12 13:10] LABS: CALCIUM 9.4 mg/dL (8.7-10.4)
[2024-07-12 13:15] LABS: GLUCOSE 190 mg/dL (70-105); UREA NITROGEN BLOOD 20 mg/dL (9-23)
[2024-07-12 13:16] LABS: ALANINE AMINOTRANSFERASE 18 IU/L (10-49); ALBUMIN 3.3 g/dL (3.2-4.8); ASPARTATE AMINOTRANSFERASE 25 IU/L (<34)
[2024-07-12 13:17] LABS: BILIRUBIN TOTAL 0.3 mg/dL (0.1-1.0); PROTEIN TOTAL 7.2 g/dL (6.0-8.3)
[2024-07-12 13:19] LABS: PREALBUMIN < 5.0 mg/dl (10.0-40.0)
[2024-07-12] MEDS: ACETAMINOPHEN 325MG TABLET PO PRN (14:02)
[2024-07-12] MEDS ORDERED: NALOXONE HCL 0.4MG/ML VIAL IV PRN (16:00)
[2024-07-12 19:59] VITALS: BP 149/56; PULSE 67; RESP 19; TEMP 36.28068; O2SAT 97
[2024-07-12] MEDS: ATORVASTATIN CALCIUM 40MG TABLET PO SCH (20:31)
[2024-07-12] MEDS: HYDROCODONE/ACETAMINOPHEN 5/325MG TABLET PO PRN (20:41)
[2024-07-13 08:00] VITALS: BP 149/60; PULSE 72; RESP 20; TEMP 36.114; O2SAT 100
[2024-07-13 09:24] LABS: BASOPHILS % 0.3 % (0.0-2.0); EOSINOPHILS % 1.5 % (0.0-5.0); HEMATOCRIT. 27.4 % (42.0-52.0); HEMOGLOBIN. 8.9 g/dL (14.0-18.0); LYMPHOCYTES % 17.6 % (20.0-50.0); MEAN CORPUSCULAR HEMOGLOBIN 26.2 pg (28.0-32.0); MEAN CORPUSCULAR HGB CONC 32.4 g/dL (31.0-37.0); MEAN PLATELET VOLUME 9.2 fl (7.4-10.4); MONOCYTES % 9.8 % (2.0-8.0); NEUTROPHILS % 70.8 % (40.0-76.0); PLATELET 199 x1000/uL (130-400); RED BLOOD CELL COUNT 3.38 mill/uL (4.7-6.1); RED CELL DISTRIBUTION WIDTH 12.8 % (11.6-14.6); WHITE BLOOD COUNT 6.8 x1000/uL (4.5-11.0)
[2024-07-13 09:25] LABS: CHLORIDE 105 mEq/L (98-107); POTASSIUM 3.9 mEq/L (3.5-5.1); SODIUM 138 mEq/L (136-145)
[2024-07-13 09:26] LABS: CALCIUM 9.2 mg/dL (8.7-10.4); CARBON DIOXIDE 25 mEq/L (21-32)
[2024-07-13 09:30] LABS: IRON 24 ug/dL (65-175)
[2024-07-13 09:31] LABS: GLUCOSE 121 mg/dL (70-105); PROTEIN TOTAL 6.9 g/dL (6.0-8.3); UREA NITROGEN BLOOD 20 mg/dL (9-23)
[2024-07-13 09:33] LABS: ALANINE AMINOTRANSFERASE 21 IU/L (10-49); ALBUMIN 3.1 g/dL (3.2-4.8); ASPARTATE AMINOTRANSFERASE 25 IU/L (<34); BILIRUBIN TOTAL 0.2 mg/dL (0.1-1.0); TOTAL IRON BINDING CAPACITY 621 ug/dl (250-425)
[2024-07-13 09:34] LABS: THYROID STIMULATING HORMONE < 0.10 uIU/mL (0.55-4.78)
[2024-07-13 09:38] LABS: FOLIC ACID (FOLATE) SERUM > 20.00 ng/mL (>5.38)
[2024-07-13 09:39] LABS: VITAMIN B12 SERUM 524 pg/mL (211-911)
[2024-07-13] MEDS: FERROUS SULFATE 325MG TABLET PO SCH (13:37)
[2024-07-13 18:11] LABS: CLARITY URINE CLOUDY (CLEAR); COLOR URINE YELLOW (YELLOW); GLUCOSE URINE NEGATIVE (NEGATIVE); KETONES URINE NEGATIVE (NEGATIVE); LEUKOCYTE ESTERASE URINE NEGATIVE (NEGATIVE); NITRITE URINE NEGATIVE (NEGATIVE); OCCULT BLOOD URINE NEGATIVE (NEGATIVE); PROTEIN URINE 1+ (NEGATIVE); SPECIFIC GRAVITY URINE 1.013 (1.005-1.030); UROBILINOGEN URINE 0.2 E.U./dL (0.2-1.0)
[2024-07-13 19:53] LABS: BACTERIA URINE 3+; RBC URINE 0-2 /hpf (0-2); SQUAMOUS EPITHELIAL CELL URINE FEW /lpf (RARE/1+); WBC URINE 0-2 /hpf (0-2)
[2024-07-13 19:54] LABS: AMORPHOUS SEDIMENT URINE 2+ /lpf
[2024-07-13 20:00] VITALS: BP 153/59; PULSE 72; RESP 18; TEMP 36.22512; O2SAT 100
[2024-07-14 08:00] VITALS: BP 152/64; PULSE 64; RESP 18; TEMP 36.3918; O2SAT 98
[2024-07-14] MEDS: ASCORBIC ACID 500 MG TABLET PO SCH (08:46)
[2024-07-14] MEDS: ENOXAPARIN 120MG/0.8ML SYR SUBCUT SCH (08:47)
[2024-07-14 11:08] LABS: POTASSIUM 3.6 mEq/L (3.5-5.1)
[2024-07-14 11:09] LABS: CALCIUM 9.1 mg/dL (8.7-10.4)
[2024-07-14] MEDS ORDERED: AMIO100T4 PO (16:02)
[2024-07-14] MEDS ORDERED: SEMA14TA2 (16:02)
[2024-07-14] MEDS ORDERED: HYDR100T31 MT (16:02)
[2024-07-14] MEDS ORDERED: LOSA100T33 PO (16:02)
[2024-07-14] MEDS ORDERED: FERR325T6 PO (16:02)
[2024-07-14] MEDS ORDERED: LEVO50TA8 MT (16:02)
[2024-07-14] MEDS ORDERED: TAMS-11 PO (16:02)
[2024-07-14] MEDS ORDERED: PANT40TA51 PO (16:02)
[2024-07-14 20:00] VITALS: BP 140/62; PULSE 66; RESP 18; TEMP 36.3918; O2SAT 97
[2024-07-15 08:00] VITALS: BP 148/61; PULSE 69; RESP 19; TEMP 37.33632; O2SAT 96
[2024-07-15 10:13] LABS: T4 FREE 1.65 ng/dL (0.89-1.76)
[2024-07-15 10:14] LABS: THYROID STIMULATING HORMONE < 0.10 uIU/mL (0.55-4.78)
[2024-07-15 16:38] LABS: POTASSIUM 3.8 mEq/L (3.5-5.1)
[2024-07-15 16:40] LABS: BASOPHILS % 0.2 % (0.0-2.0); CALCIUM 8.7 mg/dL (8.7-10.4); EOSINOPHILS % 2.1 % (0.0-5.0); HEMATOCRIT. 26.8 % (42.0-52.0); HEMOGLOBIN. 8.7 g/dL (14.0-18.0); LYMPHOCYTES % 24.5 % (20.0-50.0); MEAN CORPUSCULAR HEMOGLOBIN 26.3 pg (28.0-32.0); MEAN CORPUSCULAR HGB CONC 32.6 g/dL (31.0-37.0); MEAN CORPUSCULAR VOLUME 80.7 fL (80.0-94.0); MEAN PLATELET VOLUME 9.2 fl (7.4-10.4); MONOCYTES % 7.5 % (2.0-8.0); NEUTROPHILS % 65.7 % (40.0-76.0); PLATELET 232 x1000/uL (130-400); RED BLOOD CELL COUNT 3.32 mill/uL (4.7-6.1); RED CELL DISTRIBUTION WIDTH 13.2 % (11.6-14.6); WHITE BLOOD COUNT 6.4 x1000/uL (4.5-11.0)
[2024-07-15 20:00] VITALS: BP 136/53; PULSE 67; RESP 18; TEMP 35.89176; O2SAT 94
[2024-07-16 07:25] LABS: POTASSIUM 3.7 mEq/L (3.5-5.1)
[2024-07-16 07:32] LABS: CREATININE 2.8 mg/dL (0.6-1.3)
[2024-07-16 08:00] VITALS: BP 154/56; PULSE 60; RESP 20; TEMP 36.05844; O2SAT 98
[2024-07-16 08:03] LABS: BASOPHILS % 0.5 % (0.0-2.0); DIFFERENTIAL COMMENT 0; EOSINOPHILS % 2.9 % (0.0-5.0); HEMATOCRIT. 26.6 % (42.0-52.0); HEMOGLOBIN. 8.7 g/dL (14.0-18.0); LYMPHOCYTES % 20.1 % (20.0-50.0); MEAN CORPUSCULAR HEMOGLOBIN 26.2 pg (28.0-32.0); MEAN CORPUSCULAR HGB CONC 32.8 g/dL (31.0-37.0); MEAN CORPUSCULAR VOLUME 79.7 fL (80.0-94.0); MEAN PLATELET VOLUME 9.2 fl (7.4-10.4); MONOCYTES % 9.7 % (2.0-8.0); NEUTROPHILS % 66.8 % (40.0-76.0); PLATELET 229 x1000/uL (130-400); RED BLOOD CELL COUNT 3.33 mill/uL (4.7-6.1); RED CELL DISTRIBUTION WIDTH 13.2 % (11.6-14.6); WHITE BLOOD COUNT 5.7 x1000/uL (4.5-11.0)
[2024-07-16 20:00] VITALS: BP 147/53; PULSE 71; RESP 19; TEMP 37.7808; O2SAT 94
[2024-07-17] VITALS: BP 142/60; PULSE 84; RESP 19; TEMP 37.05852; O2SAT 95
[2024-07-17 04:00] VITALS: BP 138/62; PULSE 79; RESP 19; TEMP 37.11408; O2SAT 96
[2024-07-17 08:00] VITALS: BP 137/54; PULSE 72; RESP 19; TEMP 36.55848; O2SAT 96
[2024-07-17 08:12] LABS: PROLACTIN 32.5 ng/mL (3.6-25.2)
[2024-07-17] MEDS: LOPERAMIDE HCL 2MG CAPSULE PO PRN (15:20)
[2024-07-17 20:00] VITALS: BP 112/56; PULSE 60; RESP 17; TEMP 36.72516; O2SAT 99
[2024-07-17] MEDS: ERGOCALCIFEROL 50000UNITS CAPSULE PO SCH (21:22)
[2024-07-18 08:00] VITALS: BP 125/74; PULSE 63; RESP 18; TEMP 36.28068; O2SAT 96
[2024-07-18 13:11] LABS: ACTH PLASMA 36 pg/mL (7.2-63.3)
[2024-07-18 20:00] VITALS: BP 147/44; PULSE 63; RESP 20; TEMP 36.16956; O2SAT 100
[2024-07-19 08:00] VITALS: BP 124/50; PULSE 70; RESP 19; TEMP 36.3918; O2SAT 96
[2024-07-19] MEDS: ENOXAPARIN 100MG/ML SYR SUBCUT SCH (08:23)
[2024-07-19 13:23] LABS: BASOPHILS % 0.2 % (0.0-2.0); LYMPHOCYTES % 9.6 % (20.0-50.0); MEAN CORPUSCULAR HEMOGLOBIN 25.8 pg (28.0-32.0); MEAN CORPUSCULAR HGB CONC 32.2 g/dL (31.0-37.0); MEAN CORPUSCULAR VOLUME 80.3 fL (80.0-94.0); MEAN PLATELET VOLUME 8.5 fl (7.4-10.4); MONOCYTES % 9.5 % (2.0-8.0); NEUTROPHILS % 79.7 % (40.0-76.0); PLATELET 267 x1000/uL (130-400); RED BLOOD CELL COUNT 3.49 mill/uL (4.7-6.1); RED CELL DISTRIBUTION WIDTH 13.8 % (11.6-14.6); WHITE BLOOD COUNT 12.2 x1000/uL (4.5-11.0)
[2024-07-19 13:38] LABS: POTASSIUM 3.5 mEq/L (3.5-5.1)
[2024-07-19 13:39] LABS: CALCIUM 8.8 mg/dL (8.7-10.4)
[2024-07-19 13:45] LABS: CREATININE 3.8 mg/dL (0.6-1.3)
[2024-07-19 20:00] VITALS: BP 138/49; PULSE 72; RESP 20; TEMP 36.50292; O2SAT 99
[2024-07-20] MEDS: SODIUM CHLORIDE 0.9% 1,000 ML IV SCH (07:37)
[2024-07-20 08:00] VITALS: BP 130/48; PULSE 63; RESP 18; TEMP 36.28068; O2SAT 97
[2024-07-20 08:37] LABS: BASOPHILS % 0.2 % (0.0-2.0); HEMATOCRIT. 26.1 % (42.0-52.0); HEMOGLOBIN. 8.4 g/dL (14.0-18.0); LYMPHOCYTES % 11.2 % (20.0-50.0); MEAN CORPUSCULAR HEMOGLOBIN 26.1 pg (28.0-32.0); MEAN CORPUSCULAR HGB CONC 32.2 g/dL (31.0-37.0); MEAN PLATELET VOLUME 9.7 fl (7.4-10.4); MONOCYTES % 11.9 % (2.0-8.0); NEUTROPHILS % 75.7 % (40.0-76.0); PLATELET 269 x1000/uL (130-400); RED BLOOD CELL COUNT 3.22 mill/uL (4.7-6.1); RED CELL DISTRIBUTION WIDTH 13.7 % (11.6-14.6)
[2024-07-20 08:51] LABS: CHLORIDE 106 mEq/L (98-107); POTASSIUM 3.5 mEq/L (3.5-5.1); SODIUM 137 mEq/L (136-145)
[2024-07-20 08:52] LABS: CARBON DIOXIDE 23 mEq/L (21-32)
[2024-07-20 08:53] LABS: CALCIUM 8.7 mg/dL (8.7-10.4)
[2024-07-20 08:57] LABS: CREATININE 3.9 mg/dL (0.6-1.3); GLUCOSE 126 mg/dL (70-105)
[2024-07-20 08:58] LABS: UREA NITROGEN BLOOD 41 mg/dL (9-23)
[2024-07-20 09:00] LABS: T4 FREE 1.56 ng/dL (0.89-1.76); THYROID STIMULATING HORMONE < 0.10 uIU/mL (0.55-4.78)
[2024-07-20] MEDS: CHOLESTYRAMINE/SUCROSE 4G POWDER PACKET PO SCH (09:00)
[2024-07-20 10:07] LABS: BASOPHILS % 0.2 % (0.0-2.0); EOSINOPHILS % 1.2 % (0.0-5.0); HEMATOCRIT. 26.6 % (42.0-52.0); HEMOGLOBIN. 8.4 g/dL (14.0-18.0); MEAN CORPUSCULAR HEMOGLOBIN 25.7 pg (28.0-32.0); MEAN CORPUSCULAR HGB CONC 31.7 g/dL (31.0-37.0); MEAN CORPUSCULAR VOLUME 80.9 fL (80.0-94.0); MEAN PLATELET VOLUME 9.9 fl (7.4-10.4); MONOCYTES % 10.1 % (2.0-8.0); NEUTROPHILS % 74.5 % (40.0-76.0); PLATELET 278 x1000/uL (130-400); RED BLOOD CELL COUNT 3.28 mill/uL (4.7-6.1); RED CELL DISTRIBUTION WIDTH 13.6 % (11.6-14.6); WHITE BLOOD COUNT 12.8 x1000/uL (4.5-11.0)
[2024-07-20 10:55] LABS: POTASSIUM 3.6 mEq/L (3.5-5.1)
[2024-07-20 10:57] LABS: CALCIUM 8.8 mg/dL (8.7-10.4)
[2024-07-20 11:01] LABS: CREATININE 3.9 mg/dL (0.6-1.3)
[2024-07-20 20:00] VITALS: BP 112/46; PULSE 61; RESP 18; TEMP 36.33624; O2SAT 94
[2024-07-21 08:00] VITALS: BP 119/59; PULSE 63; RESP 18; TEMP 36.6696; O2SAT 99
[2024-07-21 09:23] LABS: BASOPHILS % 0.1 % (0.0-2.0); EOSINOPHILS % 1.6 % (0.0-5.0); HEMATOCRIT. 27.3 % (42.0-52.0); HEMOGLOBIN. 8.7 g/dL (14.0-18.0); LYMPHOCYTES % 11.7 % (20.0-50.0); MEAN CORPUSCULAR HEMOGLOBIN 25.5 pg (28.0-32.0); MEAN CORPUSCULAR HGB CONC 31.9 g/dL (31.0-37.0); MEAN PLATELET VOLUME 9.1 fl (7.4-10.4); MONOCYTES % 9.4 % (2.0-8.0); NEUTROPHILS % 77.2 % (40.0-76.0); PLATELET 284 x1000/uL (130-400); RED BLOOD CELL COUNT 3.41 mill/uL (4.7-6.1); RED CELL DISTRIBUTION WIDTH 13.5 % (11.6-14.6); WHITE BLOOD COUNT 12.4 x1000/uL (4.5-11.0)
[2024-07-21 09:32] LABS: POTASSIUM 3.6 mEq/L (3.5-5.1)
[2024-07-21 09:34] LABS: CALCIUM 8.7 mg/dL (8.7-10.4)
[2024-07-21 09:38] LABS: CREATININE 3.8 mg/dL (0.6-1.3)
[2024-07-21] MEDS: CHOLESTYRAMINE/SUCROSE 4G POWDER PACKET PO SCH (17:32)
[2024-07-21] MEDS: VANCOMYCIN 250MG/5ML ORAL SYRINGE PO SCH (19:50)
[2024-07-21 20:00] VITALS: BP 122/49; PULSE 66; RESP 18; TEMP 36.6696; O2SAT 97
[2024-07-22 08:00] VITALS: BP 147/51; PULSE 62; RESP 20; TEMP 35.8362; O2SAT 96
[2024-07-22 09:35] LABS: BASOPHILS % 0.1 % (0.0-2.0); EOSINOPHILS % 1.5 % (0.0-5.0); HEMATOCRIT. 27.4 % (42.0-52.0); HEMOGLOBIN. 9.1 g/dL (14.0-18.0); LYMPHOCYTES % 11.2 % (20.0-50.0); MEAN CORPUSCULAR HEMOGLOBIN 26.5 pg (28.0-32.0); MEAN CORPUSCULAR HGB CONC 33.1 g/dL (31.0-37.0); MEAN PLATELET VOLUME 8.9 fl (7.4-10.4); MONOCYTES % 11.7 % (2.0-8.0); NEUTROPHILS % 75.5 % (40.0-76.0); PLATELET 293 x1000/uL (130-400); RED BLOOD CELL COUNT 3.43 mill/uL (4.7-6.1); RED CELL DISTRIBUTION WIDTH 13.4 % (11.6-14.6); WHITE BLOOD COUNT 10.5 x1000/uL (4.5-11.0)
[2024-07-22 09:59] LABS: POTASSIUM 3.6 mEq/L (3.5-5.1)
[2024-07-22 10:01] LABS: CALCIUM 8.6 mg/dL (8.7-10.4)
[2024-07-22 10:06] LABS: CREATININE 3.5 mg/dL (0.6-1.3)
[2024-07-22 14:26] LABS: CLARITY URINE CLOUDY (CLEAR); COLOR URINE YELLOW (YELLOW); GLUCOSE URINE NEGATIVE (NEGATIVE); KETONES URINE NEGATIVE (NEGATIVE); LEUKOCYTE ESTERASE URINE 1+ (NEGATIVE); NITRITE URINE NEGATIVE (NEGATIVE); OCCULT BLOOD URINE NEGATIVE (NEGATIVE); PROTEIN URINE TRACE (NEGATIVE); SPECIFIC GRAVITY URINE 1.012 (1.005-1.030); UROBILINOGEN URINE 0.2 E.U./dL (0.2-1.0)
[2024-07-22 14:57] LABS: BACTERIA URINE 1+; RBC URINE 0-2 /hpf (0-2); SQUAMOUS EPITHELIAL CELL URINE NONE SEEN /lpf (RARE/1+); YEAST URINE NONE SEEN
[2024-07-22 20:00] VITALS: BP 134/58; PULSE 64; RESP 18; TEMP 36.33624; O2SAT 95
[2024-07-23 08:00] VITALS: BP 126/79; PULSE 57; RESP 18; TEMP 35.66952; O2SAT 97
[2024-07-23 08:02] LABS: CALCIUM 8.8 mg/dL (8.7-10.4); POTASSIUM 3.9 mEq/L (3.5-5.1)
[2024-07-23 08:08] LABS: CREATININE 3.3 mg/dL (0.6-1.3)
[2024-07-23 08:30] LABS: BASOPHILS % 0.2 % (0.0-2.0); EOSINOPHILS % 2.4 % (0.0-5.0); HEMATOCRIT. 27.9 % (42.0-52.0); LYMPHOCYTES % 20.9 % (20.0-50.0); MEAN CORPUSCULAR HEMOGLOBIN 25.9 pg (28.0-32.0); MEAN CORPUSCULAR HGB CONC 32.3 g/dL (31.0-37.0); MEAN CORPUSCULAR VOLUME 80.3 fL (80.0-94.0); MEAN PLATELET VOLUME 9.7 fl (7.4-10.4); MONOCYTES % 12.1 % (2.0-8.0); NEUTROPHILS % 64.4 % (40.0-76.0); PLATELET 287 x1000/uL (130-400); RED BLOOD CELL COUNT 3.47 mill/uL (4.7-6.1); RED CELL DISTRIBUTION WIDTH 13.3 % (11.6-14.6); WHITE BLOOD COUNT 9.3 x1000/uL (4.5-11.0)
[2024-07-23 20:00] VITALS: BP 108/87; PULSE 64; RESP 18; TEMP 36.22512; O2SAT 96
[2024-07-24 08:00] VITALS: BP 123/40; PULSE 61; RESP 20; TEMP 36.114; TEMP 36.11400; O2SAT 98
[2024-07-24 11:12] VITALS: BP 123/40; PULSE 63; TEMP 96.8; O2SAT 98
[2024-07-24] MEDS ORDERED: VANJ5 PO (11:35)
[2024-07-24] MEDS ORDERED: AMLO10TA80 PO (11:35)
[2024-07-24] MEDS ORDERED: LIP40 PO (11:35)
[2024-07-24] MEDS ORDERED: FERR-63 PO (11:35)
[2024-07-24] MEDS ORDERED: CHOL4PAC5 PO (11:35)
[2024-07-24] MEDS ORDERED: SUCR1TAB PO (11:35)
[2024-07-24] MEDS ORDERED: AMI2 PO (11:35)
== END 2024-07-24 12:55 | disposition home health service (06) | DRG 300 ==
LOC: 4WST 22:55
PROVIDERS: ADMIT Physical Medicine & Rehabilitation Spinal Cord Injury Medicine; ATTEND Family Medicine Adult Medicine
DX: E11.52 Type 2 diabetes mellitus with diabetic peripheral angiopathy with gangrene (principal); M86.8X7 Other osteomyelitis, ankle and foot; N17.9 Acute kidney failure, unspecified; N18.4 Chronic kidney disease, stage 4 (severe); L03.032 Cellulitis of left toe; L85.3 Xerosis cutis; K27.9 Peptic ulcer, site unspecified, unspecified as acute or chronic, without hemorrhage or perforation; I48.0 Paroxysmal atrial fibrillation; I25.10 Atherosclerotic heart disease of native coronary artery without angina pectoris; E78.5 Hyperlipidemia, unspecified; D50.9 Iron deficiency anemia, unspecified; E03.9 Hypothyroidism, unspecified; E11.22 Type 2 diabetes mellitus with diabetic chronic kidney disease; E11.40 Type 2 diabetes mellitus with diabetic neuropathy, unspecified; E11.69 Type 2 diabetes mellitus with other specified complication; I13.10 Hypertensive heart and chronic kidney disease without heart failure, with stage 1 through stage 4 chronic kidney disease, or unspecified chronic kidney disease; N28.1 Cyst of kidney, acquired; R26.9 Unspecified abnormalities of gait and mobility; R53.81 Other malaise; N40.0 Benign prostatic hyperplasia without lower urinary tract symptoms; R79.89 Other specified abnormal findings of blood chemistry; E55.9 Vitamin D deficiency, unspecified; E78.00 Pure hypercholesterolemia, unspecified; R94.6 Abnormal results of thyroid function studies; R19.5 Other fecal abnormalities; R19.7 Diarrhea, unspecified; D72.829 Elevated white blood cell count, unspecified; Z79.01 Long term (current) use of anticoagulants; Z79.4 Long term (current) use of insulin; Z89.412 Acquired absence of left great toe; Z89.429 Acquired absence of other toe(s), unspecified side; Z80.3 Family history of malignant neoplasm of breast; Z82.49 Family history of ischemic heart disease and other diseases of the circulatory system; Z83.3 Family history of diabetes mellitus; Z87.11 Personal history of peptic ulcer disease; Z91.81 History of falling; Z98.41 Cataract extraction status, right eye; Z79.899 Other long term (current) drug therapy; Z63.4 Disappearance and death of family member
CPT/HCPCS: 36415; 71045; 76770; 80048; 80053; 81003; 82024; 82270; 82306; 82533; 82550; 82607; 82746; 82962; 83036; 83520; 83540; 83550; 84134; 84145; 84146; 84439; 84443; 84481; 85025; 86376; 87015; 87045; 87427; 87449; 89055; 97110; 97116; 97161; 97166; 97530; 97535; 97542; A4606; A6261; J1650; J1815; J3370; J7030

== ENCOUNTER 2024-11-04 21:20 | Inpatient (IN) | payer MEDICARE, MEDICAID ==
[~2024-11-04] VITALS: Ht 180.3 cm; Wt 104.3 kg
[2024-11-04 21:00] VITALS: BP 123/72; PULSE 68; RESP 18; TEMP 36.4
[2024-11-04 21:05] VITALS: BP 136/83; PULSE 76; RESP 18; TEMP 36.6; O2SAT 98
[~2024-11-04 21:20] MED LIST changes: -AMI2; +AMI2 PO; -AMOX1TAB16 MT; +BRIM.2 EACHEYE; +CETI10CA11 MT; +CHOL4PAC5 PO; -CRES10 PO; -CYCL10TA21 MT; +DAPA5TAB MT; -DOCU100T PO; +DORZ10DR32 EACHEYE; +ESCI-7 MT; +FERR-63 PO; +FINE10TA PO; -HYDR-4001 MT; +INSU100I24 SQ; +LATA2.5D14 EACHEYE; +LEVO50TA8 MT; +LIP40 PO; -MAX GT; -OMEP40CA20 MT; +PANT40TA51 MT; +ROSU40TA MT; +ROSU40TA PO; +SEMA14TA2; -SENN-3 PO; +SUCR1TAB PO; -SUCR1TAB30 MT; +TAMS-54 MT; -TOPUD MT; +VANJ5 PO
[2024-11-04] MEDS ORDERED: DIPHENHYDRAMINE 50MG/ML VIAL IV PRN (22:00)
[2024-11-04] MEDS ORDERED: ONDANSETRON HCL 4MG/2ML INJ IV PRN (22:00)
[2024-11-04] MEDS ORDERED: HYDROCODONE/ACETAMINOPHEN 10/325MG TABLET PO PRN (22:00)
[2024-11-04] MEDS ORDERED: MORPHINE SULFATE 4 MG/ML INJ (FOR IV/IM USE) IV PRN (22:00)
[2024-11-04] MEDS ORDERED: NALOXONE HCL 0.4MG/ML 1ML VIAL IV PRN (22:00)
[2024-11-04] MEDS ORDERED: DEXTROSE 50% WATER 50ML SYRINGE IV PRN (22:00)
[2024-11-04] MEDS: DEXT 5%/0.45% NACL 1000ML 1,000 ML IV SCH (22:00)
[2024-11-04] MEDS ORDERED: ACETAMINOPHEN 325MG TABLET PO PRN ×2 (22:45)
[2024-11-05] MEDS: PIPERACILLIN/TAZO 3.375G/50ML 50 ML IV SCH (00:11)
[2024-11-05 06:36] LABS: BASOPHILS % 0.5 % (0.0-2.0); DIFFERENTIAL COMMENT 0; EOSINOPHILS % 3.8 % (0.0-5.0); HEMATOCRIT. 28.8 % (42.0-52.0); HEMOGLOBIN. 9.1 g/dL (14.0-18.0); LYMPHOCYTES % 38.8 % (20.0-50.0); MEAN CORPUSCULAR HEMOGLOBIN 24.8 pg (28.0-32.0); MEAN CORPUSCULAR HGB CONC 31.8 g/dL (31.0-37.0); MEAN CORPUSCULAR VOLUME 77.9 fL (80.0-94.0); MEAN PLATELET VOLUME 8.9 fl (7.4-10.4); MONOCYTES % 7.8 % (2.0-8.0); NEUTROPHILS % 49.1 % (40.0-76.0); PLATELET 157 x1000/uL (130-400); RED BLOOD CELL COUNT 3.69 mill/uL (4.7-6.1); RED CELL DISTRIBUTION WIDTH 17.3 % (11.6-14.6); WHITE BLOOD COUNT 4.4 x1000/uL (4.5-11.0)
[2024-11-05 06:46] LABS: CHLORIDE 106 mEq/L (98-107); POTASSIUM 4.3 mEq/L (3.5-5.1); SODIUM 139 mEq/L (136-145)
[2024-11-05] MEDS: BLOOD SUGAR DIAGNOSTIC STRIP TEST SCH (06:48)
[2024-11-05 06:49] LABS: CALCIUM 8.8 mg/dL (8.7-10.4); CARBON DIOXIDE 27 mEq/L (21-32)
[2024-11-05 06:54] LABS: CREATININE 1.9 mg/dL (0.6-1.3); GLUCOSE 129 mg/dL (70-105); UREA NITROGEN BLOOD 13 mg/dL (9-23)
[2024-11-05 06:55] LABS: ALANINE AMINOTRANSFERASE < 7 IU/L (10-49)
[2024-11-05 06:56] LABS: ASPARTATE AMINOTRANSFERASE 9 IU/L (<34); BILIRUBIN TOTAL 0.2 mg/dL (0.1-1.0); PREALBUMIN 15.5 mg/dl (10.0-40.0)
[2024-11-05 06:57] LABS: PROTEIN TOTAL 6.9 g/dL (6.0-8.3)
[2024-11-05 08:00] VITALS: BP 143/57; PULSE 69; RESP 20; TEMP 35.9; O2SAT 98
[2024-11-05] MEDS: INSULIN LISPRO 100 UNITS/ML SUBCUT SCH (09:00)
[2024-11-05] MEDS: DOCUSATE SODIUM 100MG CAPSULE PO SCH (09:00)
[2024-11-05] MEDS: APIXABAN 2.5 MG TABLET PO SCH (09:00)
[2024-11-05] MEDS: FAMOTIDINE 20MG/2ML VIAL IV SCH (09:24)
[2024-11-05] MEDS: HYDROCODONE/ACETAMINOPHEN 10/325MG TABLET PO PRN (14:39)
[2024-11-05 20:00] VITALS: BP 126/42; PULSE 61; RESP 18; TEMP 36.6; O2SAT 97
[2024-11-06 06:18] LABS: CARBON DIOXIDE 26 mEq/L (21-32); CHLORIDE 107 mEq/L (98-107); POTASSIUM 4.1 mEq/L (3.5-5.1); SODIUM 139 mEq/L (136-145)
[2024-11-06 06:20] LABS: CALCIUM 9.1 mg/dL (8.7-10.4)
[2024-11-06 06:23] LABS: CREATININE 1.8 mg/dL (0.6-1.3)
[2024-11-06 06:24] LABS: FOLIC ACID (FOLATE) SERUM > 20.00 ng/mL (>5.38); GLUCOSE 150 mg/dL (70-105); IRON 48 ug/dL (65-175)
[2024-11-06 06:25] LABS: FERRITIN 120 ng/mL (22-322); UREA NITROGEN BLOOD 14 mg/dL (9-23)
[2024-11-06 06:26] LABS: T4 FREE 1.49 ng/dL (0.89-1.76); THYROID STIMULATING HORMONE 0.25 uIU/mL (0.55-4.78)
[2024-11-06 06:27] LABS: TOTAL IRON BINDING CAPACITY 245 ug/dl (250-425); VITAMIN B12 SERUM 698 pg/mL (211-911)
[2024-11-06 06:37] LABS: BASOPHILS % 0.3 % (0.0-2.0); DIFFERENTIAL COMMENT 0; EOSINOPHILS % 3.8 % (0.0-5.0); HEMATOCRIT. 28.9 % (42.0-52.0); HEMOGLOBIN. 9.3 g/dL (14.0-18.0); LYMPHOCYTES % 41.7 % (20.0-50.0); MEAN CORPUSCULAR HEMOGLOBIN 24.8 pg (28.0-32.0); MEAN CORPUSCULAR HGB CONC 32.2 g/dL (31.0-37.0); MEAN PLATELET VOLUME 8.9 fl (7.4-10.4); NEUTROPHILS % 45.2 % (40.0-76.0); PLATELET 160 x1000/uL (130-400); RED BLOOD CELL COUNT 3.75 mill/uL (4.7-6.1); RED CELL DISTRIBUTION WIDTH 17.5 % (11.6-14.6); WHITE BLOOD COUNT 3.9 x1000/uL (4.5-11.0)
[2024-11-06 08:00] VITALS: BP 138/58; PULSE 61; RESP 19; TEMP 36.3; O2SAT 98
[2024-11-06 20:00] VITALS: BP 118/42; PULSE 54; RESP 20; TEMP 36.7; O2SAT 99
[2024-11-07 08:00] VITALS: BP 130/49; PULSE 57; RESP 20; TEMP 36.6; O2SAT 97
[2024-11-08 08:00] VITALS: BP 122/48; PULSE 62; RESP 19; TEMP 36.3; O2SAT 96
[2024-11-08 20:00] VITALS: BP 132/44; PULSE 69; RESP 18; TEMP 36.7; O2SAT 98
[2024-11-09 08:00] VITALS: BP 168/52; PULSE 62; RESP 18; TEMP 36.2; O2SAT 96
[2024-11-09] MEDS ORDERED: LIDOCAINE HCL 1% 10 MG/ML 10ML VIAL ONE (08:02)
[2024-11-09 20:00] VITALS: BP 144/97; PULSE 55; RESP 18; TEMP 36.6; O2SAT 96
[2024-11-10 08:00] VITALS: BP 152/59; PULSE 52; RESP 18; TEMP 36.2; O2SAT 95
[2024-11-10 14:31] LABS: CLARITY URINE CLEAR (CLEAR); COLOR URINE YELLOW (YELLOW); GLUCOSE URINE NEGATIVE (NEGATIVE); KETONES URINE TRACE (NEGATIVE); LEUKOCYTE ESTERASE URINE NEGATIVE (NEGATIVE); NITRITE URINE NEGATIVE (NEGATIVE); OCCULT BLOOD URINE NEGATIVE (NEGATIVE); PROTEIN URINE 2+ (NEGATIVE); SPECIFIC GRAVITY URINE 1.013 (1.005-1.030); UROBILINOGEN URINE 0.2 E.U./dL (0.2-1.0)
[2024-11-10 14:41] LABS: BACTERIA URINE NONE SEEN; RBC URINE 0-2 /hpf (0-2); SQUAMOUS EPITHELIAL CELL URINE RARE /lpf (RARE/1+); WBC URINE 0-2 /hpf (0-2); YEAST URINE NONE SEEN
[2024-11-10] MEDS ORDERED: [UNRECOGNIZED DRUG - OTHER] XX SCH (16:15)
[2024-11-10 20:00] VITALS: BP 126/64; PULSE 52; RESP 18; TEMP 36.6; O2SAT 99
[2024-11-11 06:58] LABS: BASOPHILS % 0.2 % (0.0-2.0); DIFFERENTIAL COMMENT 0; HEMOGLOBIN. 9.3 g/dL (14.0-18.0); LYMPHOCYTES % 38.8 % (20.0-50.0); MEAN CORPUSCULAR HEMOGLOBIN 24.9 pg (28.0-32.0); MEAN CORPUSCULAR HGB CONC 32.2 g/dL (31.0-37.0); MEAN CORPUSCULAR VOLUME 77.6 fL (80.0-94.0); MEAN PLATELET VOLUME 9.5 fl (7.4-10.4); MONOCYTES % 9.9 % (2.0-8.0); NEUTROPHILS % 46.1 % (40.0-76.0); PLATELET 144 x1000/uL (130-400); RED BLOOD CELL COUNT 3.74 mill/uL (4.7-6.1); RED CELL DISTRIBUTION WIDTH 18.2 % (11.6-14.6); WHITE BLOOD COUNT 3.7 x1000/uL (4.5-11.0)
[2024-11-11 07:01] LABS: POTASSIUM 3.8 mEq/L (3.5-5.1)
[2024-11-11 07:03] LABS: CALCIUM 8.6 mg/dL (8.7-10.4)
[2024-11-11 07:06] LABS: CREATININE 1.7 mg/dL (0.6-1.3)
[2024-11-11 08:00] VITALS: BP 168/52; PULSE 57; RESP 18; TEMP 36; O2SAT 99
[2024-11-11 20:00] VITALS: BP 147/62; PULSE 54; RESP 19; TEMP 36.8; O2SAT 97
[2024-11-11] MEDS: METRONIDAZOLE 500MG TABLET PO SCH (21:19)
[2024-11-11] MEDS: CEFTAZIDIME PENTAHYDRATE 2 G in DEXT 5% WATER 100 ML IV SCH (21:20)
[2024-11-12 08:00] VITALS: BP 155/68; PULSE 64; RESP 20; TEMP 36.1; O2SAT 96
[2024-11-12 20:00] VITALS: BP 170/60; PULSE 59; RESP 19; TEMP 36.8; O2SAT 98
[2024-11-12] MEDS: CLONIDINE 0.1MG TABLET PO PRN (21:33)
[2024-11-13 06:19] LABS: BASOPHILS % 0.6 % (0.0-2.0); DIFFERENTIAL COMMENT 0; EOSINOPHILS % 5.1 % (0.0-5.0); HEMATOCRIT. 29.5 % (42.0-52.0); HEMOGLOBIN. 9.3 g/dL (14.0-18.0); LYMPHOCYTES % 42.2 % (20.0-50.0); MEAN CORPUSCULAR HEMOGLOBIN 24.4 pg (28.0-32.0); MEAN CORPUSCULAR HGB CONC 31.4 g/dL (31.0-37.0); MEAN CORPUSCULAR VOLUME 77.7 fL (80.0-94.0); MEAN PLATELET VOLUME 9.1 fl (7.4-10.4); MONOCYTES % 8.6 % (2.0-8.0); NEUTROPHILS % 43.5 % (40.0-76.0); PLATELET 136 x1000/uL (130-400); RED CELL DISTRIBUTION WIDTH 18.6 % (11.6-14.6); WHITE BLOOD COUNT 3.2 x1000/uL (4.5-11.0)
[2024-11-13 06:39] LABS: CALCIUM 8.6 mg/dL (8.7-10.4)
[2024-11-13 06:43] LABS: CREATININE 1.6 mg/dL (0.6-1.3)
[2024-11-13 08:23] VITALS: BP 160/73; PULSE 66; RESP 18; TEMP 36.6; O2SAT 98
[2024-11-13 20:00] VITALS: BP 153/67; PULSE 60; RESP 19; TEMP 36.7; O2SAT 98
[2024-11-14 08:00] VITALS: BP 123/60; PULSE 60; RESP 20; TEMP 36.1; O2SAT 100
[2024-11-14 20:00] VITALS: BP 161/67; PULSE 60; RESP 20; TEMP 36.2; O2SAT 98
[2024-11-15 08:00] VITALS: BP 143/63; PULSE 60; RESP 19; TEMP 36.6; O2SAT 97
[2024-11-15 08:03] LABS: BASOPHILS % 0.4 % (0.0-2.0); DIFFERENTIAL COMMENT 0; EOSINOPHILS % 4.8 % (0.0-5.0); HEMATOCRIT. 29.3 % (42.0-52.0); HEMOGLOBIN. 9.3 g/dL (14.0-18.0); MEAN CORPUSCULAR HEMOGLOBIN 24.6 pg (28.0-32.0); MEAN CORPUSCULAR HGB CONC 31.9 g/dL (31.0-37.0); MEAN CORPUSCULAR VOLUME 76.9 fL (80.0-94.0); MEAN PLATELET VOLUME 9.4 fl (7.4-10.4); MONOCYTES % 8.3 % (2.0-8.0); NEUTROPHILS % 43.5 % (40.0-76.0); PLATELET 128 x1000/uL (130-400); RED BLOOD CELL COUNT 3.81 mill/uL (4.7-6.1); RED CELL DISTRIBUTION WIDTH 18.4 % (11.6-14.6); WHITE BLOOD COUNT 3.1 x1000/uL (4.5-11.0)
[2024-11-15 08:06] LABS: POTASSIUM 4.1 mEq/L (3.5-5.1)
[2024-11-15 08:08] LABS: CALCIUM 8.5 mg/dL (8.7-10.4)
[2024-11-15 08:12] LABS: CREATININE 1.5 mg/dL (0.6-1.3)
[2024-11-15] MEDS ORDERED: DOCU-422 PO (10:38)
[2024-11-15] MEDS ORDERED: METR-167 PO (10:38)
[2024-11-15] MEDS ORDERED: APIX2.5T PO (10:38)
[2024-11-15] MEDS ORDERED: LEVO-65 MT (10:38)
[2024-11-15 11:28] VITALS: BP 143/63; PULSE 60; TEMP 97.8; O2SAT 97
== END 2024-11-15 13:35 | disposition home health service (06) | DRG 300 ==
PROVIDERS: ADMIT Physical Medicine & Rehabilitation Spinal Cord Injury Medicine; ATTEND Internal Medicine
PROC: 02HV33Z Insertion of Infusion Device into Superior Vena Cava, Percutaneous Approach (ICD-10-PCS; principal; 2024-11-09)
PROC: B548ZZA Ultrasonography of Superior Vena Cava, Guidance (ICD-10-PCS; 2024-11-09)
DX: E11.52 Type 2 diabetes mellitus with diabetic peripheral angiopathy with gangrene (principal); E87.20 Acidosis, unspecified; N17.9 Acute kidney failure, unspecified; I48.92 Unspecified atrial flutter; M86.8X7 Other osteomyelitis, ankle and foot; E11.22 Type 2 diabetes mellitus with diabetic chronic kidney disease; E11.40 Type 2 diabetes mellitus with diabetic neuropathy, unspecified; I48.0 Paroxysmal atrial fibrillation; N18.30 Chronic kidney disease, stage 3 unspecified; D64.9 Anemia, unspecified; E78.5 Hyperlipidemia, unspecified; R53.81 Other malaise; R26.9 Unspecified abnormalities of gait and mobility; I25.10 Atherosclerotic heart disease of native coronary artery without angina pectoris; K27.9 Peptic ulcer, site unspecified, unspecified as acute or chronic, without hemorrhage or perforation; I13.10 Hypertensive heart and chronic kidney disease without heart failure, with stage 1 through stage 4 chronic kidney disease, or unspecified chronic kidney disease; N28.1 Cyst of kidney, acquired; N40.0 Benign prostatic hyperplasia without lower urinary tract symptoms; E87.5 Hyperkalemia; B96.5 Pseudomonas (aeruginosa) (mallei) (pseudomallei) as the cause of diseases classified elsewhere; E11.319 Type 2 diabetes mellitus with unspecified diabetic retinopathy without macular edema; E11.69 Type 2 diabetes mellitus with other specified complication; E55.9 Vitamin D deficiency, unspecified; E66.9 Obesity, unspecified; R00.1 Bradycardia, unspecified; Z79.01 Long term (current) use of anticoagulants; Z79.4 Long term (current) use of insulin; Z80.3 Family history of malignant neoplasm of breast; Z82.49 Family history of ischemic heart disease and other diseases of the circulatory system; Z83.3 Family history of diabetes mellitus; Z87.11 Personal history of peptic ulcer disease; Z89.412 Acquired absence of left great toe; Z89.422 Acquired absence of other left toe(s); Z91.81 History of falling; Z63.4 Disappearance and death of family member; Z79.84 Long term (current) use of oral hypoglycemic drugs; Z79.899 Other long term (current) drug therapy; Z68.32 Body mass index [BMI] 32.0-32.9, adult; Z71.89 Other specified counseling
CPT/HCPCS: 36415; 36573; 71045; 76770; 80048; 80053; 81003; 82306; 82607; 82728; 82746; 82962; 83540; 83550; 84134; 84439; 84443; 84481; 85025; 97110; 97116; 97150; 97161; 97166; 97530; 97535; 97542; A4606; A6449; C1725; J0713; J1815; J2003; J2543; J3490; J7060